=== PATIENT | female | born 1995 | race Two or more races ===

== ENCOUNTER 2021-12-06 10:34 | Emergency (ER) | payer OTHER ==
[~2021-12-06] VITALS: Ht 162.6 cm; Wt 94.8 kg
[2021-12-06 10:38] VITALS: BP 133/86
--- NOTE | 2021-12-06 11:01 | NUR ---
Dr. Anderson evaluating patient at bedside.
--- NOTE | 2021-12-06 11:06 | NUR ---
26 y/o female bib self with c/o pelvic pain radiating from pelvis to thighs. Patient has 6/10 cramping pain. Per patient "the pain is not her normal PCOS pain." Patient is also complaining of heavy menstruation. Per patient she is soaking 5 pads a day. LMP 12/05/21. Patient was told at Urgent Care to go to ER for further evaluation. Medical History: PTSD, PCOS, BARIATRIC SURGERY 2021 [facility]DA
[2021-12-06] MEDS ORDERED: KETOROLAC 30 MG/ML VIAL IM ONE (11:10)
--- NOTE | 2021-12-06 11:20 | NUR ---
Dr. Anderson ordered Toradol, patient can't take NSAIDS. Verfiried with Pharmacy patient can't take medication. Dr. Anderson was notified.
[2021-12-06] MEDS ORDERED: MORPHINE SULFATE 4 MG/ML SYR IM ONE (11:40)
--- NOTE | 2021-12-06 11:45 | NUR ---
Ultrasound at bedside.
--- NOTE | 2021-12-06 11:58 | NUR ---
Lab at bedside
[2021-12-06 12:18] LABS: BASOPHILS # (AUTO) 0.1 K/uL (0.00-0.22); BASOPHILS % (AUTO) 1.1 % (0.0-2.0); EOSINOPHILS # (AUTO) 0.1 K/uL (0-0.4); EOSINOPHILS % (AUTO) 1.8 % (0.0-4.0); HEMOGLOBIN 13.3 g/dL (12.0-16.0); LYMPHOCYTES # (AUTO) 2.1 K/uL (2.5-16.5); MEAN CORPUSCULAR HEMOGLOBIN 27 pg (27-31); MEAN CORPUSCULAR HGB CONC 33 g/dL (33-37); MEAN CORPUSCULAR VOLUME 83.3 fL (80-94); MONOCYTES # (AUTO) 0.4 K/uL (0.8-1.0); MONOCYTES % (AUTO) 6.3 % (1.7-9.3); NEUTROPHILS # (AUTO) 3.8 K/uL (1.8-7.7); NEUTROPHILS % (AUTO) 58.8 % (42.2-75.2); PLATELET COUNT (AUTO) 288 K/uL (140-450); RED BLOOD CELL COUNT(AUTO) 4.92 MIL/uL (4.20-5.40); RED CELL DISTRIBUTION WIDTH 16.7 % (11.6-13.7); WHITE BLOOD COUNT (AUTO) 6.5 K/uL (4.8-10.8)
[2021-12-06 12:32] LABS: ALBUMIN 3.4 g/dL (3.4-5.0); ANION GAP 10.6 (8-16); CARBON DIOXIDE 26.2 mmol/L (21-32); CHLORIDE 109 mmol/L (98-107); CREATININE 0.6 mg/dL (0.6-1.3); GFR ARICAN-AMERICAN 154 mL/min (>90); GLUCOSE 98 mg/dL (74-106); POTASSIUM 3.8 mmol/L (3.5-5.1); SODIUM SERUM 142 mmol/L (136-145); TOTAL BILIRUBIN 0.5 mg/dL (0.0-1.0); UREA NITROGEN, BLOOD 12 mg/dL (7-18)
--- NOTE | 2021-12-06 12:56 | NUR ---
Patient is laying in bed, respirations even and unlabored. All needs met by staff.
[2021-12-06] MEDS ORDERED: ACET-10509 PO (13:50)
[2021-12-06 14:06] VITALS: BP 137/64
--- NOTE | 2021-12-06 14:06 | NUR ---
Patient discharged with v/s stable. Written and verbal after care instructions given. Patient alert, oriented and verbalized understanding of instructions. Ambulatory with steady gait. All questions addressed prior to discharge. ID band removed. Patient advised to follow up with PMD. Rx of Tylenol given. Opportunity to ask questions provided and answered.
--- NOTE | 2021-12-06 14:07 | NUR ---
The patient's care was reviewed and supervised by Supriya Palacios RN.
== END 2021-12-06 14:06 | disposition home or self-care (01) ==
LOC: MED 10:34
DX: N93.8 Other specified abnormal uterine and vaginal bleeding (principal); N92.0 Excessive and frequent menstruation with regular cycle; J45.909 Unspecified asthma, uncomplicated
CPT/HCPCS: 36415; 76856; 80053; 81002; 81025; 85025; 93976; 96372; 99284; J2270; Q0092; J1885